=== PATIENT | female | born 1955 | race Caucasian/White ===

== ENCOUNTER 2016-05-21 13:24 | Emergency (ER) | payer MEDICAID ==
[~2016-05-21] VITALS: Ht 154.9 cm; Wt 74.4 kg
[~2016-05-21 13:24] MED LIST: ATIVAN GENERIC0.5 MG PO; AUGMENTIN 875-1 EACH PO; BACTRIM DS 8001 TA1 PO; BUPROPION XL300 MG PO; CLONAZEPAM0.5 M1 PO; CYCLOBENZAPRINE5 MG PO; DAILY VALUE1 EACH PO; DOCUSATE SODIU100 M2 PO; ETODOLAC200 MG PO; FAMOTIDINE 20MG20 MG PO; FUROSEMIDE40 MG PO; IBUPROFEN 600M600 MG PO; INDERAL10 MG PO; KEFLEX 500MG.500 MG PO; KLONOPIN0.5 M1 PO; KLOR-CON 1010 ME1 PO; LACTULOSE10 GM/151 PO; LEVAQUIN750 MG PO; LORATADINE10 MG OR; LORAZEPAM0.5 MG/TAB FT; MACROBID 100MG100 MG PO; MILK OF MA400 MG/5 M PO; MIRALAX17 GM/PACK PO; NORTRIPTYLINE H25 M2 PO; NORTRIPTYLINE25 MG PO; OMNICEF 300 MG300 MG PO; ONDANSETRON ODT4 MG PO; PANTOPRAZOLE SO40 MG PO; PANTOPRAZOLE40 M1 PO; PEPCID40 MG PO; PEPTO BISM262 MG/15 PO; PHENERGAN25 M3 PO; PREDNISONE 20MG20 MG PO; PROPRANOLOL HCL20 MG PO; REGLAN 5MG TABLE5 MG PO; REGLAN10 M1 PO; REMERON15 MG PO; REMERON30 MG PO; SEROQUEL 100MG100 MG PO; TESSALON PERLE100 M1 PO; TIZANIDINE HCL 44 MG PO; TOPIRAMATE50 MG PO; TRAZODONE 50MG50 MG PO; TRAZODONE100 MG PO; TYLENOL325 MG PO; VENTOLIN H0.09 MG/AC IH; VISTARIL25 MG PO; ZOFRAN ODT4 MG PO; ZOFRAN4 MG PO
--- NOTE | 2016-05-21 13:49 | Emergency Room Report ---
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 Clinical Suspician of Infection? Mental Status: Sepsis Risk: Have you (or family members/close friends) recently traveled outside the [place]? If Yes, where/when: Have you had exposure to infectious disease within the past month? TB? Other? Specify: R sided rib pain with dry cough for the last two weeks; has been seen in ED one week ago for same, Rx Augmentin, and seen in the ED about two weeks ago, Rx Prednisone; still feeling the same. She just walked over here in the heat and arrives diaphoretic and tachycardic after this walk. Otherwise, no complaints. Recent UTI. Also evaluated in the ED in April after noted to be hypotensive, responded to fluids. She has no chest pain. She has a dry cough, no fever. No SOB. ALLERGIES Coded Allergies: sulfamethoxazole (From BACTRIM) (05/01/16) trimethoprim (From BACTRIM) (05/01/16) Home Medications Active Scripts Prednisone (Prednisone 20MG) 20 MG PO BID #10 TAB Prov: 05/06/16 Amoxicillin/Potassium Clav (Augmentin 875-125 Tablet) 1 EACH PO BID #20 TAB Prov: 05/15/16 Reported Medications ONDANSETRON HCL (Zofran 4MG Tab) 4 MG PO TID Docusate Sodium 100 MG PO DAILY Multivitamin (Daily Value) 1 EACH PO DAILY Pantoprazole Sodium (Pantoprazole 40MG) 40 MG PO QHS Potassium Chloride (Klor-Con 10) 10 MEQ PO DAILY Propranolol Hcl (Inderal) 10 MG PO DAILY Trazodone Hcl (Trazodone HCl) 100 MG PO QHS Furosemide (Furosemide 40MG) 40 MG PO DAILY NORTRIPTYLINE HCL (Nortriptyline Hydrochloride) 75 MG PO QHS Loratadine 10 MG OR DAILY Clonazepam (Klonopin) 1 MG PO QHS ALBUTEROL (Ventolin Hfa) 1 PUFF IH Q6HP PRN BREATHING Magnesium Hydroxide (Milk Of Magnesia) 30 ML PO Q2HP PRN CONSTIPATION Hydroxyzine Pamoate (Vistaril) 25 MG PO TID History Medical History General CAD? No Angina: No [place]: No Hypertension? No Hyperlipidemia? No CHF? No DVT? No PE? No COPD? Yes Asthma? Yes Anemia? No GERD? No Gastric ulcers? No GI Bleed? No Hernia? No Thyroid Problems? No Hypothyroidism? No CVA? No Seizures? No Diabetes? No Renal Insuffiency? No End Stage Renal Disease? No UTI? No Stones? No BPH? No GB Disease: No Nephritic Syndrome? No Asplenia? No Hepatitis? No Sickle Cell Disease? No Arthritis? Yes Migraines? No Cataracts? No Glaucoma? No MRSA? No HIV? No TB? No Anxiety? No Depression? No Cancer? No Immunization Hx DT/Tetanus Unknown Flu 2015-FSN Pneumonia Refuses Surgical Hx Previous Surgery?Y Hysterect LEFT LUMPECTOMY BASAL CELL CANCER RIGHT E LEFT KNEE RIGHT ROTATOR CUFF RIGHT KNEE Tonsils And/Or Adenoids FUSION ON NECK Social History Smoking Hx Packs/day < 1 Pack Alcohol Alcohol: No Review of Systems All Other Systems Reviewed and Negative Respiratory see HPI, cough, denies shortness of breath, denies wheezing Genitourinary see HPI. Psychiatric/Neurological denies no symptoms reported Physical Exam Vital Signs Vital Signs Date Time Temp Pulse Resp B/P Pulse O2 O2 Flow FiO2 Ox Delivery Rate 05/21 1420 115 16 129/79 97 05/21 1328 99.1 127 16 130/88 97 General Appearance normal appearance, WD/WN, no apparent distress Eye Exam - bilateral eye normal exam, bilateral eye PERRL, bilateral eye EOMI Neck normal inspection, non-tender, supple, full range of motion Respiratory Status Yes: trachea midline, chest symmetrical, non tender chest, pain on expiration, non productive cough. No: respiratory distress, tender on palpation, use of accessory muscles, pain on inspiration, productive cough. Lung Sounds bilateral: normal breath sounds, lungs clear. Cardiovascular normal exam (just walked here), no peripheral edema, no gallop, no JVD, no murmur, no rub, normal peripheral pulses, tachycardia Peripheral Pulses Pulses normal Yes Gastrointestinal normal bowel sounds, normal exam, non tender, soft, no organomegaly, no pulsatile mass, no guarding, no rebound Extremities non-tender, normal range of motion, normal inspection, no calf tenderness, no pedal edema Neurologic alert, normal exam, no motor/sensory deficits, oriented x 3 Glascow Coma Scale Glascow Coma Scale Response Value EYE response: 4 Spontaneously 4 MOTOR response: 6 OBEYS 6 VERBAL response: 5 Oriented & Converses 5 Total 15 Skin intact, normal color, diaphoresis (pt just walked in the heat) Medical Decision Making LABS/Meds/Orders Pt receiving controlled substance in ED? No Results/Orders Laboratory Tests 05/21/16 1415: Lactic Acid 1.9 05/21/16 1356: Urine Color YELLOW, Urine Appearance CLOUDY, Urine pH 6.0, Ur Specific Blanchard 1.010, Urine Protein NEGATIVE, Urine Ketones TRACE H, Urine Blood NEGATIVE, Urine Nitrate NEGATIVE, Urine Bilirubin NEGATIVE, Urine Urobilinogen 0.2, Ur Leukocyte Esterase NEGATIVE, Ur Squamous Epith Cells 10-20, Urine Bacteria 1+, Urine Glucose NEGATIVE 05/21/16 1345: Sodium 140, Potassium 3.1 L, Chloride 93 L, Carbon Dioxide 37 H, BUN 11, Creatinine 1.3 H, Estimated Creat Clear 55, Estimated GFR (MDRD) 42 L, Glucose 97, Calcium 9.6, Total Bilirubin 0.4, AST 23, ALT 26, Alkaline Phosphatase 108, Troponin I < 0.02, Total Protein 8.3 H, Albumin 3.2 L, Globulin 5.1 H, Albumin/Globulin Ratio 0.6 L, Lipase 196, D-Dimer 2320 *H, WBC 7.6, RBC 4.36, Hgb 13.2, Hct 40.0, MCV 91.8, RDW 13.4, Plt Count 551 H, MPV 6.0 L, Gran % 63.6, Gran # 4.9, Lymphocytes % 28.8, Monocytes % 6.1, Eosinophils % 1.2, Basophils % 0.5, Lymphocytes # 2.2, Monocytes # 0.5, Eosinophils # 0.1, Basophils # 0.0, PUBS MCHC 33.1, MCH 30.4 Current Medication Orders Sig/Lj Start time Last Medication Dose Route Stop Time Status Admin Iopamidol 60 ML ONCE ONE 05/21 1530 DC 05/21 IV 05/21 153 1524 Sodium Chloride 20 ML ONCE ONE 05/21 1530 DC 05/21 IV 05/21 1531 1524 Sodium Chloride 20 ML ONCE ONE 05/21 1530 DC 05/21 IV 05/21 1531 1524 Sodium Chloride 10 ML ONCE ONE 05/21 1530 DC 05/21 IV 05/21 1531 1524 Lactated Ringer's 1,000 ML .STK-MED ONE 05/21 1509 DC IV Lactated Ringer's 1,000 ML .Q1H1M 05/21 1445 AC 05/21 IV 05/21 1545 1511 Sodium Chloride 10 ML PRN PRN 05/21 1445 AC IV 05/22 1444 Acetaminophen 0 .STK-MED ONE 05/21 1428 DC PO Acetaminophen 650 MG ONCE ONE 05/21 1415 DC 05/21 PO 05/21 1416 1430 Sodium Chloride 10 ML PRN PRN 05/21 1345 AC IV 05/22 1334 Orders Procedure Date/time Status DIET-NOTHING BY MOUTH 05/[address] CHEST W/PE PROTOCOL REQ 05/21 1430 Complete D-DIMER 05/21 1342 Complete 12 LEAD EKG-BESSON (INITIAL) 05/21 1335 Active ELECTROCARDIOGRAM REQUEST 05/21 1335 Active IV SALINE LOCK 05/21 1335 Active CULTURE, BLOOD 05/21 1335 Active URINALYSIS/COMPLETE 05/21 1335 Complete TROPONIN I 05/21 1335 Complete LIPASE 05/21 1335 Complete LACTIC ACID 05/21 1335 Complete CBC WITH AUTO DIFF 05/21 1335 Complete CHEM 12 PROFILE 05/21 1335 Complete CM/EKG CM/EKG EKG rhythm, no evid. of ischemic chgs, no ectopy, normal QRS, normal NH ( STach rate of 111;) XRAY/CT/US XRAY/CT/US XRAY chest XR interpretation by reviewed by me Xray Results prominent bronchial markings noted previously; had recent infiltrate 05/06/[address] chest CT interpretation by reviewed by me (report reviewed) Time results known: 1527 Pulmonary Embolism Score WELL'S CRITERIA FOR PE WELL'S CRITERIA FOR PE Response Value Clinical signs/symptoms of DVT NO 0 PE is #1 diagnosis or equally likely NO 0 Heart rate is > 100 YES 1 Immobile at least 3 days, or surgery in past 4 wks NO 0 Previously, obj. diagnosed PE or DVT NO 0 Hemoptysis NO 0 Malignancy w/Rx within 6mo, or palliative NO 0 Total 1 Patient's PE Risk 1-2pts=MOD RISK (28%) (tachy b/c just walked here) Progress ED Progress Notes Date 05/21/16 Time 1535 Comment Took PO fluids; HR improved to low 100's now. No hypoxia or tachypnea noted. Stable, and ready for d/c Departure Departure Time of Disposition 1528 Disposition DC Home or Self Care(routine) Clinical Impression Primary Impression: Pleurisy without effusion Ruled Out Impressions: Pulmonary embolism Condition STABLE Patient Instructions Cough Additional Instructions See family doctor of choice on list provided, one week; continue Augmentin; Tylenol and moist heat for discomfort; Tessalon Perles and inhaler as needed Discharge Counseling Counseled pt/family regarding diagnosis, test results, medications/RX, home care, follow up needs Prescriptions Current Visit Scripts Benzonatate (Tessalon Perle) 100 MG PO Q8HP PRN cough #30 SGL ALBUTEROL (Proventil Hfa Inhaler) 1-2 PUFF IH Q4-6H PRN #1 CAN ED Critical Care Critical Care No at 1535
[2016-05-21 14:00] LABS: HEMOGLOBIN 13.2 g/dL (12.2-16.2); LYMPH # 2.2 K/mm3 (0.7-4.5); LYMPH % 28.8 % (10-50.0)
[2016-05-21 14:10] LABS: URINE BLOOD NEGATIVE (NEG)
[2016-05-21 14:15] LABS: BUN 11 mg/dL (7-18); GFR (ESTIMATED) 42 ML/MIN (59-)
[2016-05-21 14:25] LABS: URINE BILIRUBIN - DIPSTICK NEGATIVE (NEG)
--- NOTE | 2016-05-21 15:17 | RADIOLOGY REPORT PS360 ---
CTA-CHEST HISTORY: RT PLEURITIC PAIN ORDERING PHYSICIAN: Imelda Guerrero MD PATIENT AGE: 60 years TECHNIQUE: Helical acquisition obtained following the bolus administration of 60 mL of Isovue 370 followed by a saline bolus. Axial, sagittal, and coronal reformatted images are generated and reviewed. COMPARISON: None FINDINGS: No evidence of pulmonary embolus, aortic aneurysm, or dissection. Mild atheromatous changes involving the aortic arch. Normal heart size. No mediastinal or hilar mass Lung apices are excluded. There is some mild subpleural atelectatic/dependent changes in the right lower lobe and the inferior aspect of the right upper lobe. No suspicious pulmonary nodules. No lobar consolidation or collapse. No effusion. Upper abdominal images are unremarkable. Low density changes are present involving the liver at the fissure for the ligamentum teres consistent with focal fatty changes. There are degenerative changes in the thoracic spine IMPRESSION: 1. No evidence of pulmonary embolus. 2. Minimal dependent changes right upper and right lower lobe. PULMONARY ARTERIES:No pulmonary embolus evident. AORTA:No acute finding. No thoracic aortic aneurysm or dissection evident LUNGS:Unremarkable. No mass or consolidation. PLEURAL SPACES:No significant effusion. No evidence of pneumothorax. HEART:Unremarkable. Normal heart size. No significant pericardial effusion. MEDIASTINAL AND HILAR STRUCTURES:No mediastinal or hilar mass evident. No dominant adenopathy. BONY STRUCTURES:No acute bony abnormalities apparent LYMPH NODES:No enlarged lymph nodes evident UPPER ABDOMEN:Unremarkable IMPRESSION:
--- NOTE | 2016-05-21 15:18 | RADIOLOGY REPORT PS360 ---
CHEST(2 VIEWS-NOT PORTABLE) HISTORY: Chest pain R CP ORDERING PHYSICIAN: Imelda Guerrero MD PATIENT AGE: 60 years COMPARISON: None available FINDINGS: The cardiomediastinal silhouette and pulmonary vascularity are within normal limits. The lungs are clear without infiltrates, suspicious nodules, or pleural effusions. No acute bony abnormalities. There is a bone plate present along the cervical spine inferiorly IMPRESSION: Negative chest, no acute finding
[2016-05-21] MEDS ORDERED: PROVENTIL0.09 MG/A1 IH (15:34)
[2016-05-21] MEDS ORDERED: TESSALON PERLE100 M1 PO (15:34)
[2016-05-21 15:56] VITALS: BP 127/68
== END 2016-05-21 15:57 | disposition home or self-care (01) ==
LOC: ER 13:24
PROVIDERS: Emergency Medicine
DX: R09.1 Pleurisy (principal); J44.9 Chronic obstructive pulmonary disease, unspecified
CPT/HCPCS: Q9967

== ENCOUNTER → 2016-08-21 | Outpatient (CLI) | payer MEDICAID ==
[~2016-08-21] MED LIST changes: +ACETAMINOPHEN &1 TA1 PO; +LEVAQUIN500 MG PO; +METOCLOPRAMIDE10 M3 PO; +PROVENTIL0.09 MG/A1 IH; +SUNMARK PAIN R325 MG PO; +WELLBUTRIN XL300 MG PO
[2016-08-21 16:04] LABS: AMPHETAMINES/METAMPHETAMINES NEGATIVE ng/mL (<1000)
== END ==
LOC: LAB 15:39
PROVIDERS: Emergency Medicine
DX: F41.9 Anxiety disorder, unspecified (principal)